=== PATIENT | female | born 1970 ===

== ENCOUNTER 2018-03-16 16:43 | Emergency (ER) | payer OTHER, BC ==
[2018-03-16 17:07] VITALS: TEMP 98.4
[2018-03-16] MEDS ORDERED: TDAP Vaccine 0.5 mL Syr IM ONE (17:12)
[2018-03-16] MEDS ORDERED: Amoxicillin-Clav 875-125 mg Tab PO STA (17:12)
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
[2018-03-16 18:15] VITALS: BP 145/80; PULSE 82; RESP 17; O2SAT 99
[2018-03-17 12:10] LABS: HEPATITIS B SURFACE AG Negative (NEGATIVE)
[2018-03-17 12:16] LABS: HEPATITIS A IGM NEGATIVE (NEGATIVE); HEPATITIS B CORE AB NEGATIVE (NEGATIVE)
[2018-03-17 12:28] LABS: HEPATITIS C ANTIBODY NEGATIVE (NEGATIVE)
== END 2018-03-16 17:48 | disposition home or self-care (01) ==
LOC: ED 16:43
DX: S50.871A Other superficial bite of right forearm, initial encounter (principal); Y04.1XXA Assault by human bite, initial encounter; Y92.238 Other place in hospital as the place of occurrence of the external cause; Y99.0 Civilian activity done for income or pay; Z23 Encounter for immunization